=== PATIENT | female | born 1935 | race Caucasian/White ===

== ENCOUNTER 2017-05-07 07:40 | Day surgery (SDC) | payer MEDICARE, OTHER ==
[~2017-05-07] VITALS: Ht 154.9 cm; Wt 49.3 kg
[~2017-05-07 07:40] MED LIST: ALEN70TA15 PO; ASPI-535 PO; ATOR10TA23 PO; IBUP200C PO
[2017-05-07] MEDS ORDERED: AMLODIPINE (08:39)
[2017-05-07] MEDS ORDERED: SIMVASTATIN (08:39)
[2017-05-07] MEDS ORDERED: SENNA (08:39)
[2017-05-07 08:41] VITALS: Ht 154.9 cm; Wt 49.3 kg
[2017-05-07 09:05] VITALS: BP 195/74; PULSE 74; RESP 22
[2017-05-07] MEDS ORDERED: LABETALOL HCL 20MG INJ ONE (09:12)
[2017-05-07] MEDS ORDERED: MIDAZOLAM 1 MG/ML 2 ML INJ ONE (09:29)
[2017-05-07] MEDS ORDERED: FENTAnyl 50 MCG/ML VIAL ONE (09:29)
[2017-05-07 10:10] VITALS: BP 112/53; PULSE 63; RESP 18
--- NOTE | 2017-05-08 03:50 | OPR ---
DATE OF OPERATION: 05/07/2017 PROCEDURE: Colonoscopy. PREOPERATIVE DIAGNOSIS: The patient presenting with history of chronic abdominal discomfort, chronic constipation, rule out colorectal neoplasm, rule out diverticulitis. POSTOPERATIVE DIAGNOSIS: Minimal external hemorrhoids. The rest of the colon appeared normal. OPERATION PERFORMED: After informed written consent is obtained, patient was asked to lay on the left lateral side. The patient was given 2 mg Versed and 75 mcg of fentanyl as intravenous anesthesia. When the patient became somnolent, the Olympus video colonoscope was introduced into the rectum. The scope was advanced all the way to the cecum. Entire colon appeared normal with no mucosal abnormality. The terminal ilium was examined, which appeared normal. The endoscope was then withdrawn. On the way out, no additional abnormalities detected and the procedure was terminated. PLAN: Recommend a high fiber diet, endocrine consult for further workup. Dictated By: Joel Espinal MD /[email or web address] /Document#: [id number]
== END 2017-05-07 13:29 | disposition home or self-care (01) ==
LOC: GIL 07:40
PROVIDERS: ATTEND Internal Medicine Gastroenterology
DX: K59.00 Constipation, unspecified (principal); K64.4 Residual hemorrhoidal skin tags
CPT/HCPCS: 45378; J2250; J3010